=== PATIENT | female | born 1945 | race Hispanic/Latino ===

== ENCOUNTER 2017-05-23 15:14 | Emergency (ER) | payer MEDICARE, BC ==
[2017-05-23 15:29] VITALS: BMI 19.7
[2017-05-23 15:35] VITALS: RESP 18; TEMP 97.1
--- NOTE | 2017-05-23 15:53 | ED PDOC ---
Arrival/HPI - General Chief Complaint: Trauma Time Seen by Provider: 05/23/17 15:53 Historian: Patient - History of Present Illness Narrative History of Present Illness (Text): 05/23/17 15:00 This 72 yo female with a pmh COPD, HTN, s/p pacemaker, PAD, presents to this ED c/o right facial injury since last night. Patient stated she slipped and fell down forward, hitting against a furniture in her bedroom. Patient denies syncope, dizziness, diplopia, dysarthria, dysphagia, chest pain, abdominal pain , rectal bleeding, n/v, vaginal bleeding or urinary symptoms. Time/Duration: Other (last night) Context: Home Past Medical History - Provider Review Nursing Documentation Reviewed: Yes - Infectious Disease Hx of Infectious Diseases: None - Tetanus Immunization Tetanus Immunization: Unknown - Cardiac Hx Cardiac Disorders: Yes Hx Cardiac Arrhythmia: Yes Hx Hypertension: Yes Hx Peripheral Vascular Disease: Yes - Pulmonary Hx Chronic Obstructive Pulmonary Disease (COPD): Yes Other/Comment: quit smoking 2 yrs ago - Neurological Hx Paralysis: No - Hematological/Oncological Other/Comment: dvt left arm after shoulder sx 1987 - Musculoskeletal/Rheumatological Hx Musculoskeletal Disorders: No - Psychiatric Hx Emotional Abuse: No Hx Physical Abuse: No Hx Substance Use: No - Past Surgical History Past Surgical History: Non-Contributing - Surgical History Hx Coronary Stent: Yes (2008) Hx Orthopedic Surgery: Yes Other/Comment: left shoulder sx 1987 x 4 - Anesthesia Hx Anesthesia: Yes Hx Anesthesia Reactions: No Hx Malignant Hyperthermia: No - Suicidal Assessment Feels Threatened In Home Enviroment: No Family/Social History - Physician Review Nursing Documentation Reviewed: Yes Family/Social History: Other (noncontributory) Smoking Status: Current Some Days Smoker Hx Alcohol Use: Yes (ON OCCASION) Hx Substance Use: No Allergies/Home Meds Allergies/Adverse Reactions: Allergies Penicillins Allergy (Verified 02/21/17 10:44) SWELLING Home Medications: Home Meds Medication Instructions Recorded Confirmed Simvastatin 40 mg PO DAILY 06/18/15 05/23/17 amLODIPine [Norvasc] 5 mg PO DAILY 06/18/15 05/23/17 Warfarin Sodium [Coumadin] 4 mg PO DAILY 06/19/15 05/23/17 Metoprolol Tartrate [Lopressor] 50 mg PO BID 07/08/16 05/23/17 hydroCHLOROthiazide [Microzide] 12.5 mg PO DAILY 07/08/16 05/23/17 Cilostazol [Pletal] 100 mg PO DAILY 05/23/17 05/23/17 Zolpidem [Ambien] 1 tab PO DAILY 05/23/17 05/23/17 Review of Systems - Review of Systems Constitutional: Normal. absent: Fatigue, Weight Change Eyes: Normal. absent: Vision Changes, Photophobia ENT: Normal Respiratory: Normal. absent: SOB, Cough Cardiovascular: Normal. absent: Chest Pain Gastrointestinal: Normal. absent: Abdominal Pain, Nausea, Vomiting Genitourinary Female: Normal Musculoskeletal: Other (See hpi) Skin: Normal Neurological: Normal Endocrine: Normal Hemo/Lymphatic: Normal Psychiatric: Normal Physical Exam Vital Signs Temp Pulse Resp BP Pulse Ox 05/23/17 17:15 65 18 128/71 95 05/23/17 15:34 97.1 F L 66 18 131/79 95 Temperature: Afebrile Blood Pressure: Normal Pulse: Regular Respiratory Rate: Normal Appearance: Positive for: Well-Appearing, Non-Toxic, Comfortable Pain Distress: None Mental Status: Positive for: Alert and Oriented X 3 - Systems Exam Head: Present: Normocephalic, Ecchymosis, Other ((+) b/l periorbital ecchymosis. (+) right temporal abrasion with a cental area of mild bleeding) Pupils: Present: PERRL Extroacular Muscles: Present: EOMI Conjunctiva: Present: Normal Mouth: Present: Moist Mucous Membranes Pharnyx: Present: Normal. No: ERYTHEMA, EXUDATE, TONSILS ENLARGED Neck: Present: Normal Range of Motion. No: Meningeal Signs Respiratory/Chest: Present: Clear to Auscultation, Good Air Exchange. No: Respiratory Distress, Accessory Muscle Use, Wheezes, Retracting, Rhonchi Cardiovascular: Present: Regular Rate and Rhythm, Normal S1, S2. No: Murmurs Abdomen: Present: Normal Bowel Sounds. No: Tenderness, Distention, Peritoneal Signs, Rebound, Guarding Back: Present: Normal Inspection Upper Extremity: Present: Normal Inspection, Normal ROM. No: Cyanosis, Edema Lower Extremity: Present: Normal Inspection, Normal ROM. No: Edema Neurological: Present: GCS=15, CN II-XII Intact, Speech Normal Skin: Present: Warm, Dry, Normal Color. No: Rashes Psychiatric: Present: Alert, Oriented x 3, Normal Insight, Normal Concentration Medical Decision Making ED Course and Treatment: 05/23/17 18:18 I spoke with patient regarding INR 5.65. I told patient CT head was negative. I offered patient admission for traumatic head injury with elevated INR, but she prefers to go home. She stated she will stop Coumadin, and she will see Dr. Duron tomorrow morning. Suture needs to be removed in 5 days. She also stated she will return to ED if new symptoms arise. Re-evaluation Time: 18:20 Reassessment Condition: Re-examined, Improved - Lab Interpretations Lab Results: 05/23/17 16:50 05/23/17 16:50 Lab Results 05/23/17 16:50: Sodium 130 L, Potassium 3.9, Chloride 88 L, Carbon Dioxide 33, Anion Gap 14, BUN 6 L, Creatinine 0.6 L, Est GFR ( Amer) > 60, Est GFR ( Non-Af Amer) > 60, Random Glucose 91, Calcium 10.0, Total Bilirubin 1.2, AST 48 H D, ALT 42, Alkaline Phosphatase 88, Total Protein 7.2, Albumin 4.4, Globulin 2.7, Albumin/Globulin Ratio 1.6 05/23/17 16:50: PT 66.7 H, INR 5.65 H*, APTT 51.9 H 05/23/17 16:50: WBC 7.8 D, RBC 3.97, Hgb 13.2, Hct 39.0, MCV 98.2 D, MCH 33.2 , MCHC 33.8, RDW 13.2, Plt Count 236, MPV 9.2, Gran % 62.3, Lymph % (Auto) 23.8 , Candler % (Auto) 11.3 H, Eos % (Auto) 2.2, Baso % (Auto) 0.4, Gran # 4.87, Lymph # (Auto) 1.9, Candler # (Auto) 0.9 H, Eos # (Auto) 0.2, Baso # (Auto) 0.03 I have reviewed the lab results: Yes Interpretation: Abnormal lab values (elevated INR) - RAD Interpretation Narrative RAD Interpretations (Text): 05/23/17 18:13 PROCEDURE: CT HEAD WITHOUT CONTRAST. HISTORY: GARZA s/p trauma COMPARISON: None available. TECHNIQUE: Axial computed tomography images were obtained through the head/brain without intravenous contrast. Radiation dose: Total exam DLP = 1219.05 mGy-cm. This CT exam was performed using one or more of the following dose reduction techniques: Automated exposure control, adjustment of the mA and/or kV according to patient size, and/or use of iterative reconstruction technique. FINDINGS: HEMORRHAGE: No intracranial hemorrhage. BRAIN: Diffuse atrophy with prominence of the ventricles and sulci noted. No mass effect or edema. Bilateral basal ganglia calcifications. Dense intracranial atherosclerosis. The jesus-white matter differentiation appears intact. Please note that MRI with diffusion imaging is more sensitive in the detection of acute ischemic event. VENTRICLES: No hydrocephalus. CALVARIUM: Unremarkable. PARANASAL SINUSES: Unremarkable as visualized. No significant inflammatory changes. MASTOID AIR CELLS: Unremarkable as visualized. No inflammatory changes. OTHER FINDINGS: None. IMPRESSION: Generalized atrophy. Nonspecific white matter changes. Radiology Orders: 05/23/17 15:53 HEAD W/O CONTRAST [CT] Stat 05/23/17 15:54 CERVICAL SPINE W/O CONTRAST [CT] Stat - Medication Orders Current Medication Orders: Discontinued Medications Tetanus/Reduced Diphtheria/Acell Pertussis (Boostrix Vaccine Inj) 0.5 ml IM .ONCE ONE Stop: 05/23/17 16:18 Last Admin: 05/23/17 16:56 Dose: 0.5 ml Immunization Registry Document 05/23/17 16:56 EQ (Rec: 05/23/17 16:57 EQ [id number]) Immunization Registry Consent Date 05/10/17 - Procedure PROCEDURE NOTE (Text): 05/23/17 17:42 PROCEDURE: LACERATION REPAIR Performed by the emergency provider Location: right facial laceration Length: 0.8 cm Description: clean wound edges, no foreign bodies Distal CMS: Normal. No deficits. Neurovascularly intact. Anesthesia: Lidocaine 1% with Epi. Approx. 1 cc Preparation: The wound was cleaned with NS and Bet[place]. The area was prepped and draped in the usual sterile fashion. Exploration: The wound was explored and no foreign bodies were found. Procedure: The wound was closed with 5-0 nylon. There was good approximation. In total, one suture was used. Post-Procedure: Good closure and hemostasis. The patient tolerated the procedure well and there were no complications. CSM remains intact. Post procedure dressing applied. Disposition/Present on Arrival - Present on Arrival Any Indicators Present on Arrival: No History of DVT/PE: No History of Uncontrolled Diabetes: No Urinary Catheter: No History of Decub. Ulcer: No History Surgical Site Infection Following: None - Disposition Have Diagnosis and Disposition been Completed?: Yes Diagnosis: Traumatic injury of head, Facial laceration Disposition: HOME/ ROUTINE Disposition Time: 18:20 Patient Plan: Discharge Patient Problems: Current Active Problems Problem Status Onset Facial laceration Acute Traumatic injury of head Acute Condition: GOOD Discharge Instructions (ExitCare): Closed Head Injury, Laceration Repair With Stitches (DC) Additional Instructions: You need to see Dr. Duron tomorrow morning. Also stop Coumadin today and tomorrow till restart By Dr. Duron, so make sure to see your doctor tomorrow. your INR was 5.65. Return to emergency if symptoms worsen, dizziness, nausea, vomiting, double vision. Suture needs to be removed in 5-7 days Referrals: Chao Duron MD [Primary Care Provider] - Follow up with primary Forms: [employer] (Romanian)
[2017-05-23] MEDS ORDERED: LIDOCAIN/EPI 1-0.001% 10ML INJ SOL IJ ONE (15:54)
[2017-05-23] MEDS ORDERED: TDAP Vaccine 0.5 mL Syr IM ONE (16:17)
[2017-05-23 17:08] LABS: BASO # 0.03 K/mm3 (0.0-2.0); BASO % 0.4 % (0.0-3.0); EOS # 0.2 (0.0-0.7); EOS % 2.2 % (1.5-5.0); GRAN # 4.87 (1.4-6.5); GRAN % 62.3 % (50.0-68.0); HEMOGLOBIN 13.2 g/dL (12.0-16.0); LYMPH # 1.9 (1.2-3.4); LYMPH % 23.8 % (22.0-35.0); MEAN CORPUSCULAR HEMOGLOBIN 33.2 pg (25.0-35.0); MEAN CORPUSCULAR HGB CONC 33.8 g/dl (31.0-37.0); MEAN PLATELET VOLUME 9.2 fl (7.0-11.0); MONO # 0.9 (0.1-0.6); MONO % 11.3 % (1.0-6.0); RBC 3.97 10^6/uL (3.5-6.1); RED CELL DISTRIBUTION WIDTH 13.2 % (11.5-14.5); WHITE BLOOD COUNT 7.8 10^3/ul (4.5-11.0)
[2017-05-23 17:11] LABS: MEAN CELL VOLUME 98.2 fl (80.0-105.0)
[2017-05-23 17:14] LABS: ALB/GLOB RATIO 1.6 (1.1-1.8); ALBUMIN 4.4 g/dL (3.0-4.8); ALT/SGPT 42 U/L (7-56); AST/SGOT 48 U/L (14-36); BLOOD UREA NITROGEN 6 mg/dL (7-21); GFR AFRICAN-AMERICAN > 60; GFR NON-AFRICAN AMERICAN > 60
[2017-05-23 17:17] LABS: PARTIAL THROMBOPLASTIN TIME 51.9 Seconds (25.1-36.5); PROTHROMBIN TIME 66.7 SECONDS (9.4-12.5)
[2017-05-23 17:20] LABS: INR 5.65 (0.93-1.08)
--- NOTE | 2017-05-23 17:55 | CT ---
PROCEDURE: CT HEAD WITHOUT CONTRAST. HISTORY: GARZA s/p trauma COMPARISON: None available. TECHNIQUE: Axial computed tomography images were obtained through the head/brain without intravenous contrast. Radiation dose: Total exam DLP = 1219.05 mGy-cm. This CT exam was performed using one or more of the following dose reduction techniques: Automated exposure control, adjustment of the mA and/or kV according to patient size, and/or use of iterative reconstruction technique. FINDINGS: HEMORRHAGE: No intracranial hemorrhage. BRAIN: Diffuse atrophy with prominence of the ventricles and sulci noted. No mass effect or edema. Bilateral basal ganglia calcifications. Dense intracranial atherosclerosis. The jesus-white matter differentiation appears intact. Please note that MRI with diffusion imaging is more sensitive in the detection of acute ischemic event. VENTRICLES: No hydrocephalus. CALVARIUM: Unremarkable. PARANASAL SINUSES: Unremarkable as visualized. No significant inflammatory changes. MASTOID AIR CELLS: Unremarkable as visualized. No inflammatory changes. OTHER FINDINGS: None. IMPRESSION: Generalized atrophy. Nonspecific white matter changes.
--- NOTE | 2017-05-23 18:34 | CT ---
PROCEDURE: CT scan cervical spine 05/23/2017. HISTORY: Status post fall. COMPARISON: None available. TECHNIQUE: Axial computed tomography images were obtained of the cervical spine without the use of intravenous contrast. Coronal and sagittal reformatted images were created and reviewed. Radiation dose: Total exam DLP = 295.15 mGy-cm. This CT exam was performed using one or more of the following dose reduction techniques: Automated exposure control, adjustment of the mA and/or kV according to patient size, and/or use of iterative reconstruction technique. FINDINGS: VERTEBRAE: The current study reveals no acute compression fractures no retropulsed fragments. The vertebral bodies exhibit relatively normal stature. There is straightening of the normal cervical lordosis which may in part be due to patient positioning gantry however underlying element of muscle spasm may contribute. Additionally, there is minimal anterior subluxation of C3 over C4. Remaining vertebral bodies otherwise exhibit normal alignment. Facets normally aligned. . DISCS/SPINAL CANAL/NEURAL FORAMINA: Multilevel degenerative spondylosis. . At the C2-C3 level, there is mild posterior disc space narrowing. No disc herniation however some minimal broad-based bulge of the posterior annulus present. Facets are hypertrophic left greater than right of. Minimal degenerative squaring of the uncovertebral joints. The central canal appears adequate. Exit foramina are adequate bilaterally. At the C3-C4 level, there is also disc space narrowing. The facet joints are quite hypertrophic right greater than left with minimal degenerative squaring of the uncovertebral joints. Central canal is mildly narrowed. The. Exit foramina are stenotic bilaterally. At the C4-C5 level, there is significant disc space narrowing with endplate eburnation and broad-based osteophytic ridge disc complex contiguous with hypertrophic uncovertebral joints. Facets also hypertrophic right greater than left. Changes result in moderate disc space narrowing and cord compression. The exit foramina are stenotic bilaterally. Similar changes are seen at the C5-C6 level with marked disc space narrowing, endplate eburnation and small osteophytic ridge disc complex contiguous with hypertrophic uncovertebral joints. Facets also quite hypertrophic with significant canal stenosis and cord compression. The exit foramina are stenotic bilaterally. Marked disc space narrowing C6-C7 level with endplate eburnation irregular osteophytic ridge disc complex focally larger on the right than left. The changes are contiguous with hypertrophic uncovertebral joints. There is resultant significant canal stenosis and cord compression as well as bilateral foraminal stenosis. The prevertebral and paraspinal soft tissues unremarkable. Note made of emphysematous changes in the upper lobes with biapical pleural thickening and parenchymal scarring. PARASPINAL SOFT TISSUES: Unremarkable. OTHER FINDINGS: None. IMPRESSION: No acute fractures. Straightening of the normal cervical lordosis likely in part due to patient positioning in the gantry however underlying element of muscle spasm may contribute. Minimal anterior subluxation C3 over C4. Multilevel degenerative spondylosis with the variable mild to significant canal and foraminal stenosis at nearly every level as described.
[2017-05-23 18:58] VITALS: BP 130/72; PULSE 66; O2SAT 98
== END 2017-05-23 18:57 | disposition home or self-care (01) ==
LOC: ED 15:14
DX: S01.81XA Laceration without foreign body of other part of head, initial encounter (principal); W01.190A Fall on same level from slipping, tripping and stumbling with subsequent striking against furniture, initial encounter; Y92.003 Bedroom of unspecified non-institutional (private) residence as the place of occurrence of the external cause; Z23 Encounter for immunization

== ENCOUNTER 2018-05-09 17:08 | Outpatient (CLI) | payer MEDICARE, BC | END 2018-05-09 17:09 | disposition home or self-care (01) | LOC: CARDIO 17:08 | DX: Z45.010 Encounter for checking and testing of cardiac pacemaker pulse generator [battery] (principal) ==